=== PATIENT | male | born 1985 | race Caucasian/White ===

== ENCOUNTER 2018-07-16 17:00 | Emergency (ER) | payer MEDICAID, OTHER ==
[~2018-07-16] VITALS: Ht 182.9 cm; Wt 104.3 kg
[2018-07-16 17:18] VITALS: BP 149/62
[2018-07-16] MEDS ORDERED: KETOROLAC TROMETH 60MG/2ML VIAL IM ONE (18:45)
[2018-07-16] MEDS ORDERED: DEXAMETHASONE SOD PHOS 10MG/1ML VIAL INJ IM ONE (18:45)
== END 2018-07-16 19:20 | disposition home or self-care (01) ==
LOC: ER 17:02
DX: S42.022A Displaced fracture of shaft of left clavicle, initial encounter for closed fracture (principal); S40.012A Contusion of left shoulder, initial encounter; V27.0XXA Motorcycle driver injured in collision with fixed or stationary object in nontraffic accident, initial encounter; Y93.89 Activity, other specified; Y99.8 Other external cause status; Y92.89 Other specified places as the place of occurrence of the external cause
CPT/HCPCS: 73030; 96372; 99284; J1100; J1885

== ENCOUNTER → 2018-08-22 | Outpatient (CLI) | payer OTHER, MEDICAID ==
[2018-08-22 11:41] LABS: Basophils # (auto) 0 uL; Basophils % (auto) 0.4 % (0.0-2.0); Eosinophils # (auto) 0.1 uL; Eosinophils % (auto) 1.1 % (0.0-7.0); Hematocrit 46.3 % (41.0-53.0); Hemoglobin 15.7 g/dL (13.5-17.5); Lymphocytes # (auto) 1.9 uL; Lymphocytes % (auto) 29.5 % (10.0-50.0); Mean Corpuscular Hemoglobin 29.7 pg (28.0-32.0); Mean Corpuscular Volume 87.5 fL (80.0-100.0); Monocytes # (auto) 0.5 uL; Monocytes % (auto) 7.9 % (0.0-12.0); Neutrophils % (auto) 61.1 % (37.0-80.0); Platelet Count (auto) 240 10^3/uL (140-450); Red Blood Cells 5.29 10^6/uL (4.5-5.90); Red Cell Distribution Width 13.8 % (11.8-14.3); White Blood Cell 6.5 10^3/uL (4.4-10.8)
[2018-08-22 11:53] LABS: Potassium 4.2 mmol/L (3.5-5.1)
[2018-08-22 12:03] LABS: Albumin 4.3 g/dL (3.4-5.0); BUN/Creatinine Ratio 11.3; Bilirubin, Total 0.5 mg/dL (0.2-1.0); Calcium 9.4 mg/dL (8.5-10.1); Total Protein 8.4 g/dL (6.4-8.2)
== END | disposition home or self-care (01) ==
LOC: LAB 10:12
PROVIDERS: ATTEND Nurse Practitioner
DX: I10 Essential (primary) hypertension (principal); E78.5 Hyperlipidemia, unspecified; E66.9 Obesity, unspecified; E55.9 Vitamin D deficiency, unspecified; R68.89 Other general symptoms and signs
CPT/HCPCS: 36415; 80053; 80061; 82306; 83036; 84443; 85025; 86900; 86901

== ENCOUNTER 2020-09-07 20:57 | Emergency (ER) | payer MEDICAID, OTHER ==
[~2020-09-07] VITALS: Ht 182.9 cm; Wt 108.9 kg
[2020-09-07 21:59] VITALS: BP 150/90
== END 2020-09-07 23:05 | disposition home or self-care (01) ==
LOC: ER 20:58
DX: H72.92 Unspecified perforation of tympanic membrane, left ear (principal); H90.42 Sensorineural hearing loss, unilateral, left ear, with unrestricted hearing on the contralateral side; H92.22 Otorrhagia, left ear
CPT/HCPCS: 70486

== ENCOUNTER 2020-10-27 20:09 | Emergency (ER) | payer OTHER ==
[~2020-10-27] VITALS: Ht 182.9 cm; Wt 113.4 kg
[2020-10-27 20:35] VITALS: BP 153/81
[2020-10-28 00:16] LABS: Urine WBC None Seen /hpf (0 - 3)
[2020-10-28 00:37] LABS: Urine Bacteria NONE SEEN /hpf (None Seen); Urine Blood 1+ /uL (Negative); Urine Specific Gravity 1.033 (1.001-1.035)
== END 2020-10-28 05:12 | disposition home or self-care (01) ==
LOC: ER 20:09
DX: N50.812 Left testicular pain (principal)
CPT/HCPCS: 76870; 81001

== ENCOUNTER 2021-05-09 16:25 | Emergency (ER) | payer OTHER ==
[~2021-05-09] VITALS: Ht 182.9 cm; Wt 106.6 kg
[2021-05-09 16:34] VITALS: BP 154/87
[2021-05-09] MEDS ORDERED: FLUORESCEIN SOD OPTH TEST STRIP EACHEYE ONE (17:15)
[2021-05-09] MEDS ORDERED: TETRACAINE HCL 0.5% OPTH(EYE) SOLN 4ML EACHEYE ONE (17:15)
== END 2021-05-09 17:51 | disposition home or self-care (01) ==
LOC: ER 16:25
DX: T15.01XA Foreign body in cornea, right eye, initial encounter (principal); X58.XXXA Exposure to other specified factors, initial encounter; Y93.89 Activity, other specified; Y92.89 Other specified places as the place of occurrence of the external cause; Y99.8 Other external cause status
CPT/HCPCS: 65220